=== PATIENT | male | born 1980 | race American Indian/Alaskan Native ===

== ENCOUNTER 2020-07-15 01:13 | Emergency (ER) | payer SELFPAY ==
[2020-07-15] MEDS ORDERED: MORPHINE 4 MG/1 ML INJ IV ONE ×2 (01:45→02:03)
[2020-07-15] MEDS ORDERED: ONDANSETRON 4 MG/2 ML INJ IV ONE (01:45)
[2020-07-15 02:26] LABS: Albumin 3.5 g/dL (3.9-5); Calcium 9.1 mg/dL (8.4-10.2)
[2020-07-15 02:43] LABS: Basophils % (Auto) 0.6 % (0.0-1.8); Eosinophils # (Auto) 0.1 K/mm3 (0.0-0.4); Eosinophils % (Auto) 1.7 % (0.0-4.3); Hematocrit 27.4 % (35.5-45.6); Hemoglobin 9.3 gm/dl (11.8-15.2); Lymphocytes # (Auto) 0.2 K/mm3 (1.2-5.4); Lymphocytes % (Auto) 7.2 % (13.4-35.0); Mean Corpuscular HGB Conc 34 % (32-34); Mean Corpuscular Volume 80 fl (84-94); Monocytes # (Auto) 0.5 K/mm3 (0.0-0.8); Monocytes % (Auto) 14.9 % (0.0-7.3); Platelet Count 252 K/mm3 (140-440); Red Blood Count 3.41 M/mm3 (3.65-5.03); Red Cell Distribution Width 14.1 % (13.2-15.2)
--- NOTE | 2020-07-15 02:55 | Emergency Department Report ---
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 PEG tube was placed at [facility] on June 24 due to inability to swallow secondary to cancer. Patient is currently undergoing radiation therapy without chemo. Patient also has difficulty communicating/speaking secondary to cancer no cough. No complaints of fever. Patient does not take anything by mouth currently and is PEG dependent Severity scale (0 -10): 7 - Related Data Previous Rx's Medication Instructions Recorded Last Taken Type cephALEXin [Keflex] 500 mg FEEDTUBE Q6HR #28 capsule 07/15/20 Unknown Rx traMADoL [Ultram 50 MG tab] 50 mg FEEDTUBE Q6HR PRN #14 tablet 07/15/20 Unknown Rx Allergies Allergy/AdvReac Type Severity Reaction Status Date / Time No Known Allergies Allergy Unverified 07/15/20 01:16 ED Review of Systems ROS: Stated complaint: INFECTED FEEDING TUBE/CANCER PT Other details as noted in HPI Comment: All other systems reviewed and negative ED Past Medical Hx - Past Medical History Hx Hypertension: No Hx of Cancer: Yes (nasopharyngeal 04/18/2020) - Surgical History Past Surgical History?: No Additional Surgical History: colonoscopy with polyp removal - Social History Smoking Status: Former Smoker Substance Use Type: None - Medications Home Medications: Home Medications Medication Instructions Recorded Confirmed Last Taken Type cephALEXin [Keflex] 500 mg FEEDTUBE Q6HR #28 capsule 07/15/20 Unknown Rx traMADoL [Ultram 50 MG tab] 50 mg FEEDTUBE Q6HR PRN #14 tablet 07/15/20 Unknown Rx ED Physical Exam - General Limitations: Other - Other Other exam information: General: No acute distress Head: Atraumatic Eyes: normal appearance ENT: Moist mucous membranes Neck: Right-sided neck with pink discoloration/scarring Chest: Clear to auscultation bilaterally CV: Regular rate and rhythm Abdomen: Soft, normal bowel sounds, nontender, nondistended, no rebound or guarding Back: Normal inspection Extremity: Normal inspection, full range of motion Neuro: Alert O x 3, no facial asymmetry, speech clear, no gross motor sensory deficit Psych: Appropriate behavior Skin: No rash ED Course Vital Signs 07/15/20 07/15/20 01:16 01:42 Temperature 98.2 F Pulse Rate 86 82 Respiratory 18 16 Rate Blood Pressure 214/171 Blood Pressure 140/91 [Left] O2 Sat by Pulse 100 97 Oximetry ED Medical Decision Making - Lab Data Result diagrams: 07/15/20 01:50 07/15/20 01:50 Lab Results 07/15/20 07/15/20 Range/Units 01:50 01:50 WBC 3.1 L (4.5-11.0) K/mm3 RBC 3.41 L (3.65-5.03) M/mm3 Hgb 9.3 L (11.8-15.2) gm/dl Hct 27.4 L (35.5-45.6) % MCV 80 L (84-94) fl MCH 27 L (28-32) pg MCHC 34 (32-34) % RDW 14.1 (13.2-15.2) % Plt Count 252 (140-440) K/mm3 Lymph % (Auto) 7.2 L (13.4-35.0) % [place] % (Auto) 14.9 H (0.0-7.3) % Eos % (Auto) 1.7 (0.0-4.3) % Baso % (Auto) 0.6 (0.0-1.8) % Lymph # 0.2 L (1.2-5.4) K/mm3 [place] # 0.5 (0.0-0.8) K/mm3 Eos # 0.1 (0.0-0.4) K/mm3 Baso # 0.0 (0.0-0.1) K/mm3 Seg Neutrophils % 75.6 H (40.0-70.0) % Seg Neutrophils # 2.4 (1.8-7.7) K/mm3 Sodium 140 (137-145) mmol/L Potassium 4.1 (3.6-5.0) mmol/L Chloride 97.1 L (98-107) mmol/L Carbon Dioxide 28 (22-30) mmol/L Anion Gap 19 mmol/L BUN 47 H (9-20) mg/dL Creatinine 1.9 H (0.8-1.3) mg/dL Estimated GFR 40 ml/min BUN/Creatinine Ratio 25 % Glucose 103 H (75-100) mg/dL Calcium 9.1 (8.4-10.2) mg/dL Total Bilirubin 0.20 (0.1-1.2) mg/dL AST 22 (5-40) units/L ALT 19 (7-56) units/L Alkaline Phosphatase 56 (35-129) units/L Total Protein 6.9 (6.3-8.2) g/dL Albumin 3.5 L (3.9-5) g/dL Albumin/Globulin Ratio 1.0 % - Radiology Data Radiology results: report reviewed CT ABDOMEN AND PELVIS WITH IV CONTRAST INDICATION: Epigastric pain. Drainage from PEG tube. TECHNIQUE: Following the administration of intravenous contrast, multiple axial CT images of the abdomen and pelvis were acquired. Sagittal and coronal reformats were obtained. All CT performed at this facility utilize dose reduction techniques including automated exposure control, iterative reconstruction and weight based dosing when appropriate to reduce patient radiation dose to as low as reasonably achievable. COMPARISON: None FINDINGS: Limited imaging of the bilateral lung bases demonstrates no evidence of acute abnormality. Abdomen: A PEG tube is present with bulb in the mid stomach in expected positi on. The liver, gallbladder, spleen, pancreas, bilateral adrenal glands and bilateral kidneys show no evidence of acute abnormality. The abdominal aorta is normal in caliber with minimal scattered atherosclerotic calcifications. There is no evidence of bowel obstruction or free air. The appendix is visualized and appears normal. Pelvis: No free fluid is seen within the pelvis. The urinary bladder appears normal. Bones and Soft Tissues: Evaluation of bony structures demonstrates no evidence of acute bony abnormality. Evaluation of soft tissue structures demonstrates no evidence of acute soft tissue abnormality. IMPRESSION: 1. No evidence of acute inflammatory or obstructive process within the abdomen or pelvis. 2. PEG tube is present and appears to be in expected anatomic position. - Medical Decision Making Patient presents to the hospital with leakage and pain around recently placed PEG tube site. Patient does not have a skin erythema or warmth. Mild bloody yellow drainage noted around the PEG tube site. CT does not show any fluid col lection or acute abnormality. Patient does not have a fever. Patient noted to have mild renal insufficiency without previous creatinine available for comparison. Patient was suggestive of dehydration. In the ED patient received 1 g of Ancef, morphine/Zofran for pain/nausea, and 1 L of normal saline. I also discussed findings with his via telephone. I encouraged outpatient follow-up with his doctors at [facility] including GI and PMD for reevaluation of renal function to see if it improves or if nephrology consultation is necessary. Copy of lab work and imaging results provided since his primary physicians are not affiliated with this hospital system. Patient will be provided pain medication and empiric antibiotics. Critical Care Time: No Critical care attestation.: If time is entered above; I have spent that time in minutes in the direct care of this critically ill patient, excluding procedure time. ED Disposition Clinical Impression: Leaking PEG tube, Pain around PEG tube site, Mild renal insufficiency, Dehydration, Nasopharyngeal cancer Disposition: TO HOME OR SELFCARE Is pt being admited?: No Does the pt Need Aspirin: No Condition: Stable Instructions: Abdominal Pain (ED), How to Use and Care for Your PEG Tube (ED), Impaired Kidney Function (ED), Dehydration (ED) Additional Instructions: Take the medication as prescribed. Follow-up with your doctor or doctor/clinic provided. Return if symptoms worsen as indicated by your discharge instructions Your labs show mildly impaired kidney functio which may be due to dehydration Increase your fluid intake. You were treated in the ER with 1 g Ancef, morphine/Zofran for pain/nausea, and 1 L of normal saline It is very important you follow-up with your doctors for reevaluation your kidney function and the PEG tube site. Take the antibiotics as prescribed. Return if symptoms worsen as indicated by your discharge instructions Prescriptions: cephALEXin [Keflex] 500 mg FEEDTUBE Q6HR #28 capsule traMADoL [Ultram 50 MG tab] 50 mg FEEDTUBE Q6HR PRN #14 tablet PRN Reason: Pain Referrals: ORLANDO VERAS MD [Primary Care Provider] - 2-3 Days your, gi doctors at [facility] [Other] - 3-5 Days
--- NOTE | 2020-07-15 03:23 | Cat Scan Report ---
CT ABDOMEN AND PELVIS WITH IV CONTRAST INDICATION: Epigastric pain. Drainage from PEG tube. TECHNIQUE: Following the administration of intravenous contrast, multiple axial CT images of the abdo men and pelvis were acquired. Sagittal and coronal reformats were obtained. All CT performed at this facility utilize dose reduction techniques including automated exposure control, iterative reconstru ction and weight based dosing when appropriate to reduce patient radiation dose to as low as reasonab ly achievable. COMPARISON: None FINDINGS: Limited imaging of the bilateral lung bases demonstrates no evidence of acute abnormality. Abdomen: A PEG tube is present with bulb in the mid stomach in expected position. The liver, gallblad lorna, spleen, pancreas, bilateral adrenal glands and bilateral kidneys show no evidence of acute abnor mality. The abdominal aorta is normal in caliber with minimal scattered atherosclerotic calcification s. There is no evidence of bowel obstruction or free air. The appendix is visualized and appears norm al. Pelvis: No free fluid is seen within the pelvis. The urinary bladder appears normal. Bones and Soft Tissues: Evaluation of bony structures demonstrates no evidence of acute bony abnormal ity. Evaluation of soft tissue structures demonstrates no evidence of acute soft tissue abnormality. IMPRESSION: 1. No evidence of acute inflammatory or obstructive process within the abdomen or pelvis. 2. PEG tube is present and appears to be in expected anatomic position. Signer Name: Bhargavi Taylor MD Signed: 07/15/2020 3:19 AM Workstation Name: [id number]
[2020-07-15] MEDS ORDERED: SODIUM CHLORIDE 0.9% 1000 ML 1,000 ML IV ONE (03:36)
[2020-07-15] MEDS ORDERED: ceFAZolin/NS 1 GM/50 ML 1 GM/50 ML BAG IV ONE (04:05)
[2020-07-15 06:24] VITALS: BP 135/83
== END 2020-07-15 06:25 | disposition home or self-care (01) ==
LOC: ED 01:13
DX: T85.631A Leakage of intraperitoneal dialysis catheter, initial encounter (principal); N28.9 Disorder of kidney and ureter, unspecified; E86.0 Dehydration; D09.8 Carcinoma in situ of other specified sites; Z87.891 Personal history of nicotine dependence; X58.XXXA Exposure to other specified factors, initial encounter
CPT/HCPCS: 36415; 74177; 80053; 85025; 96361; 96365; 96375; 99284; J0690; J2270; J2405; J7030; Q9967